=== PATIENT | male | born 1960 | race Caucasian/White ===

== ENCOUNTER 2017-08-20 06:27 | Day surgery (SDC) | payer OTHER ==
[2017-08-18 09:44] VITALS: BMI 28.3
[2017-08-20] MEDS ORDERED: PHENYLEPHRINE HCL 10 MG/1 ML SINGLE DOSE VIAL ONE (07:12)
[2017-08-20] MEDS ORDERED: PROPOFOL 20 ML ONE ×3 (07:13→09:24)
[2017-08-20] MEDS ORDERED: SUCCINYLCHOLINE CHLORIDE 200 MG/10 ML VIAL ONE (07:13)
[2017-08-20] MEDS ORDERED: ePHEDrine SULFATE 50 MG/1 ML AMPULE ONE (07:13)
[2017-08-20] MEDS ORDERED: ROCURONIUM BROMIDE 50 MG/5 ML VIAL ONE (07:13)
[2017-08-20] MEDS ORDERED: MIDAZOLAM HCL 2 MG/2 ML SINGLE DOSE VIAL ONE ×2 (07:13)
[2017-08-20] MEDS ORDERED: DEXAMETHASONE SOD PHOSPHATE 4 MG/1 ML VIAL ONE (07:16)
[2017-08-20] MEDS ORDERED: ceFAZolin SODIUM 1 GM VIAL ONE ×2 (07:16→11:30)
[2017-08-20] MEDS ORDERED: LIDOCAINE HCL/PF 2% SDV 5ML VIAL ONE (07:17)
[2017-08-20] MEDS ORDERED: ROPIVACAINE HCL 0.5% 30ML VIAL ONE (07:26)
--- NOTE | 2017-08-20 08:03 | HP ---
Satellite H - Chief Complaint Chief Complaint: right shoulder pain - Past Medical History Allergies/Adverse Reactions: Allergies Allergy/AdvReac Type Severity Reaction Status Date / Time No Known Drug Allergies Allergy Verified 08/18/17 09:45 - Current Medications Current Medications: Home Medications Medication Instructions Recorded Acetaminophen [Tylenol 1,000 mg PO Q6H PRN 08/18/17 .Extra-Strength -] Albuterol Sulfate Inhaler - 1 - 2 inh PO QID 08/18/17 [Ventolin HFA Inhaler -] Fluticasone Furoate [Flonase 9.9 ml NS DAILY 08/18/17 Sensimist] Fluticasone/Salmeterol [Advair 1 each IH DAILY 08/18/17 250-50 Diskus] Infliximab [Remicade Infusion -] 100 mg IV ASDIR 08/18/17 Loratadine [Claritin] 10 mg PO DAILY 08/18/17 Prednisone 10 mg PO PRN PRN 08/18/17 Alprazolam 0.25 mg PO PRN PRN 08/20/17 Oxycodone HCl/Acetaminophen 1 - 2 tab PO Q6H #50 tab MDD 8 08/20/17 [Percocet 5-325 mg Tablet] Satellite Physical Exam - Physical Examination Vital Signs: Vital Signs Period Temp Pulse Resp BP Sys/Ingram Pulse Ox Last 24 Hr 97.9 F 73 20 142/93 97 General Appearance: Well Nourished, Well Developed, Alert & Oriented x3 ENT: Clear Lung: Normal air movement Heart: Regular rate & rhythm Extremities: Other (right shoulder- + ttp, decr rom, + neer, + benitez, + empty can, nvi MRI + rct) Neurological: Intact, Alert, Oriented Satellite Impression/Plan - Impression/Plan Impression: right shoulder rct Operative Procedure: right shoulder arthroscopy with SAD, RCR Date to be Performed: 08/20/17
[2017-08-20] MEDS ORDERED: ALBUTEROL SO4 18 GM HFA INHALER IH ONE (08:07)
[2017-08-20] MEDS: ceFAZolin SODIUM 1 GM VIAL IVPB ONE ×2 (08:45→11:45)
--- NOTE | 2017-08-20 09:48 | OP ---
Operative Note - Note: Operative Date: 08/20/17 ([facility]) Pre-Operative Diagnosis: right shoulder rct Operation: right shoulder arthroscopy with RCR, SAD Implants: 2 arthrex swivelocks Post-Operative Diagnosis: Same as Pre-op Surgeon: Gray Cancino Director Medicare Sales: Ralph Rosas Anesthesiologist/INSIDE SALES SPECIALIST: Liam Zamarripa Anesthesia: Local, MAC Specimens Removed: shavings Estimated Blood Loss (mls): 5 Operative Report Dictated: Yes
[2017-08-20] MEDS ORDERED: PROMETHAZINE HCL 25 MG/1 ML VIAL IVPUSH PRN (09:55)
[2017-08-20] MEDS ORDERED: oxyCODONE HCL 5 MG TABLET PO PRN (09:55)
[2017-08-20] MEDS ORDERED: ONDANSETRON 4 MG/2 ML VIAL IVPUSH PRN (09:55)
[2017-08-20] MEDS ORDERED: LACTATED RINGERS SOLUTION 1,000 ML IV SCH (10:00)
[2017-08-20 11:05] VITALS: TEMP 97.6
[2017-08-20 11:58] VITALS: BP 131/88; PULSE 74
--- NOTE | 2017-08-21 09:29 | OP ---
DATE OF OPERATION: 08/20/2017 PREOPERATIVE DIAGNOSIS: Right rotator cuff tear. POSTOPERATIVE DIAGNOSIS: Right rotator cuff tear. PROCEDURE: Arthroscopy, right shoulder, with subacromial decompression and debridement and arthroscopic rotator cuff repair. SURGICAL ATTENDING: Gray Cancino MD [employer] SALES: ROLAND Julien ANESTHESIA: Regional and general. CLOSURE: Number 2 FiberWire with Swivel-Lock suture, 3-0 nylon for skin. ESTIMATED BLOOD LOSS: Negligible. COMPLICATIONS: None. CONDITION: To recovery room in stable condition. DESCRIPTION OF OPERATIVE PROCEDURE: Patient taken to the operating room on August 20, 2017. Scalene block anesthesia was administered by the anesthesiologist, followed by IV sedation. The patient was placed in the beach chair position with all prominences well padded. IV Kefzol prophylactically prior to case. The right shoulder area was prepped and draped in the usual sterile fashion. First a diagnostic arthroscopy of glenohumeral joint was performed. Posterior portals were made 2 fingerbreadths below the acromion, first with a 15 blade followed by blunt trocar. The glenohumeral joint findings were as follows: Intact glenoid and humeral head articular cartilage, intact labrum circumferentially, intact biceps and biceps anchor, intact subscapularis to its insertion. The supraspinatus was evaluated to be mostly intact, however, the anterior portion was found to have significant thinning. This area was marked from the inside with basically a spinal needle and a suture. The fluid was drained from the shoulder and the trocar was removed. The posterior trocar was redirected in the subacromial space. Accessory lateral portals were made with 15 blade with blunt trocar. A bursectomy was performed using the ArthroCare device. Coracoacromial ligament was identified inserting into the anterior acromion. This was debrided. The undersurface of the acromion was debrided, gaining sufficient height for the rotator cuff underneath. Soft tissue encasing the humeral head was debrided using the shaver, exposing the rotator cuff. The rotator cuff was found to be intact; however, the area of where the marking was, was found to be extremely thin, and gentle probing was able to puncture and gain access to the glenohumeral joint, signifying a high-grade partial-thickness tear. This tear was completed using a scalpel. The greater tuberosity was burred to stimulate bleeding bone. Multiple sutures were placed using the Stuffleio self-passing suture passer. Sutures were docked through an accessory anterior portal that was made. Two Swivel-Locks were used to fixate the rotator cuff to the greater tuberosity, achieving excellent fixation and good religious of the rotator cuff to the greater tuberosity. Sutures were cut snug. The shoulder was taken through a range of motion, had good passive range of motion, good clearance on the subacromial space. The portals were removed. The portal sites were closed with 3-0 nylon, sterile pressure dressing, followed by a shoulder immobilizer was applied. The patient was awakened from anesthesia and transferred to the recovery room in stable condition. No complication. Estimated blood loss negligible. GRAY CANCINO M.D. [id number]
== END 2017-08-20 12:27 | disposition home or self-care (01) ==
LOC: JASU-SURG 06:27
PROVIDERS: ATTEND Orthopaedic Surgery
PROC: 0LB14ZZ Excision of Right Shoulder Tendon, Percutaneous Endoscopic Approach (ICD-10-PCS; principal; 2017-08-20 08:00)
PROC: 0RNJ4ZZ Release Right Shoulder Joint, Percutaneous Endoscopic Approach (ICD-10-PCS; 2017-08-20 08:00)
DX: M75.101 Unspecified rotator cuff tear or rupture of right shoulder, not specified as traumatic (principal)
CPT/HCPCS: 94760

== ENCOUNTER 2023-02-24 04:13 | Day surgery (SDC) | payer OTHER ==
[2023-02-21 09:42] VITALS: BMI 24.6
[2023-02-24] MEDS ORDERED: LIDOCAINE HCL/PF 2% SDV 5ML VIAL ONE (10:17)
[2023-02-24] MEDS ORDERED: PROPOFOL 20 ML ONE (10:18)
[2023-02-24] MEDS ORDERED: MIDAZOLAM HCL 2 MG/2 ML SINGLE DOSE VIAL ONE (10:18)
[2023-02-24] MEDS ORDERED: ROPIVACAINE HCL 0.5% 30ML VIAL ONE (10:22)
[2023-02-24] MEDS ORDERED: PROPOFOL 60 ML ONE (11:24)
[2023-02-24] MEDS ORDERED: ceFAZolin SODIUM 1 GM VIAL IVPB ONE (11:25)
[2023-02-24] MEDS ORDERED: ceFAZolin SODIUM 1 GM VIAL ONE (11:27)
[2023-02-24] MEDS ORDERED: DEXAMETHASONE SOD PHOSPHATE 4 MG/1 ML VIAL ONE (11:27)
[2023-02-24] MEDS ORDERED: KETOROLAC TROMETHAMINE 30 MG/1 ML VIAL ONE (12:12)
[2023-02-24] MEDS ORDERED: ONDANSETRON 4 MG/2 ML VIAL ONE (12:12)
[2023-02-24] MEDS ORDERED: ACETAMINOPHEN 1000 MG/100 ML BAG IVPB ONE (12:54)
[2023-02-24] MEDS ORDERED: oxyCODONE HCL 5 MG TABLET PO PRN ×2 (12:54)
[2023-02-24] MEDS ORDERED: PROMETHAZINE HCL 25 MG/1 ML VIAL IVPB PRN (12:54)
[2023-02-24] MEDS ORDERED: ONDANSETRON 4 MG/2 ML VIAL IVPUSH PRN (12:54)
[2023-02-24] MEDS ORDERED: LACTATED RINGERS SOLUTION 1,000 ML IV SCH (13:00)
[2023-02-24 14:51] VITALS: RESP 20
[2023-02-24 16:27] VITALS: BP 120/70; PULSE 70; TEMP 97
== END 2023-02-24 16:00 | disposition home or self-care (01) ==
LOC: JASU-SURG 04:13
PROVIDERS: ATTEND Orthopaedic Surgery
PROC: 0PBF0ZZ Excision of Right Humeral Shaft, Open Approach (ICD-10-PCS; 2023-02-24)
PROC: 0LQ40ZZ Repair Left Upper Arm Tendon, Open Approach (ICD-10-PCS; 2023-02-24)
PROC: 0LQ30ZZ Repair Right Upper Arm Tendon, Open Approach (ICD-10-PCS; 2023-02-24)
PROC: 0PBG0ZZ Excision of Left Humeral Shaft, Open Approach (ICD-10-PCS; principal; 2023-02-24 11:45)
DX: M77.12 Lateral epicondylitis, left elbow (principal); M77.02 Medial epicondylitis, left elbow
CPT/HCPCS: 88304-TC; 94760